=== PATIENT | male | born 1935 | race Caucasian/White ===

== ENCOUNTER 2017-12-18 09:05 | Day surgery (SDC) | payer MEDICARE, OTHER ==
[~2017-12-18] VITALS: Ht 172.7 cm; Wt 86.2 kg
[~2017-12-18 09:05] MED LIST: CENTRUM SILVER1 EAC3 PO; CO Q10200 MG PO; FAMOTIDINE40 MG PO; IMBRUVICA140 MG PO; PANTOPRAZOLE SO20 MG PO; SIMVASTATIN20 MG PO; VITAMIN D32000 UNI1 PO
[2017-12-18] MEDS ORDERED: NORVASC5 MG PO (09:39)
--- NOTE | 2017-12-18 11:55 | NUR ---
12/18/17 1155 Tricia Norris 1150 PATIENT ARRIVES TO PACU NON-RESPONSIVE TO PAIN OR VERBAL STIMULI. ORAL AIRWAY IN PLACE, NURSE HOLDING AIRWAY. MASK AT 10 LITERS. 1153 ORAL AIR[address] STILL IN PLACE, NURSE NO LONGER NEEDED TO HOLD AIRWAY.
--- NOTE | 2017-12-18 12:18 | NUR ---
ICED WATER GIVEN. SPOUSE @ BS. CALL LIGHT W/IN REACH.
--- NOTE | 2017-12-18 14:15 | NUR ---
1340: DISCHARGE INSTRUCTIONS GIVEN TO PATIENT. PORTACATH FLUSHED WITH 10 ML NS AND HAD GOOD BLOOD RETURN. PORTACATH THEN FLUSHED WITH 500 UNITS OF HEPARIN AND THEN DEACCESSED. BANDAID PLACED OVER PORTACATH SITE. 1355: PATIENT DISCHARGED TO HOME WITH SON VIA WHEELCHAIR.
[2017-12-18] MEDS ORDERED: NORCO 5-325 TA1 EACH PO (14:36)
[2017-12-18] MEDS ORDERED: KEFLEX500 MG PO (14:40)
--- NOTE | 2017-12-18 15:13 | NUR ---
1350: PATIENT ASSISTED OOB WITH HELP OF STUDENT NURSE. GAIT STEADY. VOID WITHOUT DIFFICULTY. GAIT STEADY BACK TO ROOM. SANDWICH ORDERED. 1445: PATIENT TOLERATED SANDWICH. IV DC'D WNL. TIP INTACT. DRESSING APPLIED. DISCHARGE INSTRUCTIONS GIVEN TO PATIENT AND . PATIENT GETTING DRESSED. 1505: PATIENT DISCHARGED TO HOME VIA WHEELCHAIR WITH .
--- NOTE | 2018-01-22 14:15 | OR ---
[facility] [address], [place] [address] Signed DATE OF OPERATION: 12/18/2017 SURGEON: Maurisio Worthington MD PREOPERATIVE DIAGNOSIS: Inferior turbinate hypertrophy. POSTOPERATIVE DIAGNOSIS: Inferior turbinate hypertrophy. PROCEDURE: Cautery, bilateral submucosal inferior turbinates. ANESTHESIA: General LMA, PASCUAL Boyer. PREOPERATIVE HISTORY: Mr. 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 This has been unresponsive to appropriate medications. Preop sinus CT was negative except for inferior turbinate hypertrophy. Sinuses were clear. He was taken to the operating room for the above-mentioned procedure. OPERATIVE PROCEDURE AND FINDINGS: After informed consent, the patient was taken to the operating room and placed in the supine position where general LMA anesthesia was induced. The patient and procedure were verified. The patient received preop intravenous Ancef and intranasal oxymetazoline. Headlight speculum exam of the nasal cavity showed good decongestion of the inferior turbinates. Right side was approached first with a long handle needle point cautery. Multiple passes submucosal cautery on the inferior turbinate on the medial and inferior surface starting anteriorly all the way back posteriorly. Excellent decongestion and shrinkage of the turbinate was obtained. Same procedure on the right inferior turbinate. Minimal bleeding stopped afterwards. Packing was placed. Equal amount of Merocel trimmed, coated with Neosporin and tied anteriorly over a pad. The pharynx was suctioned clear of blood secretions. Hemostasis was verified. The patient was awakened, extubated and transported to the recovery room in good condition. COMPLICATIONS: None. BLOOD LOSS: Electronically Signed By: MAURISIO WORTHINGTON MD 01/22/18 1415 PATIENT NAME: MOSES MCCLELLAND OPERATIVE REPORT DATE OF : 39 REPORT #: [id number] PHYSICIAN: MAURISIO WORTHINGTON MD PCP: JENNY SCOTT MD REPORT IS CONFIDENTIAL AND NOT TO BE RELEASED WITHOUT AUTHORIZATION [facility] [address] [place] [id number] Signed Minimal. SPECIMEN: None. DRAINAGE: None. PACKING: One piece of Merocel each nostril. Maurisio Worthington MD GC/MODL /[id number] Electronically Signed By: MAURISIO WORTHINGTON MD 01/22/18 1415 PATIENT NAME: MOSES MCCLELLAND OPERATIVE REPORT DATE OF : 39 REPORT #: [id number] PHYSICIAN: MAURISIO WORTHINGTON MD PCP: JENNY SCOTT MD REPORT IS CONFIDENTIAL AND NOT TO BE RELEASED WITHOUT AUTHORIZATION
== END 2017-12-18 15:05 | disposition home or self-care (01) ==
LOC: OPS 09:05 → DS 09:05 → OPS 10:15
PROVIDERS: Otolaryngology
PROC: 095L7ZZ Destruction of Nasal Turbinate, Via Natural or Artificial Opening (ICD-10-PCS; principal; 2017-12-18 10:15)
DX: J34.3 Hypertrophy of nasal turbinates (principal); J32.4 Chronic pansinusitis; G47.33 Obstructive sleep apnea (adult) (pediatric); H91.90 Unspecified hearing loss, unspecified ear; Z90.49 Acquired absence of other specified parts of digestive tract; Z98.890 Other specified postprocedural states; Z79.899 Other long term (current) drug therapy
CPT/HCPCS: 00160; 36415; 85025; J0690; J2250; J2405; J2704; J3010; J7120

== ENCOUNTER 2018-12-28 17:29 | Inpatient (IN) | payer MEDICARE, OTHER ==
[~2018-12-28] VITALS: Ht 175.3 cm; Wt 87.2 kg
[~2018-12-28 17:29] MED LIST changes: +CO Q-10300 MG PO; -CO Q10200 MG PO; +KEFLEX500 MG PO; +NORCO 5-325 TA1 EACH PO; +NORVASC5 MG PO
--- NOTE | 2018-12-28 23:15 | NUR ---
pt arrived to floor via stretcher. pt able to easily scoot across stretcher and onto bed with minimal assistance. pt denies pain, nausea, or sob. ice water provided. pt oriented to call light and room. pt education provided regarding not getting oob without assistance. pt states understanding. denies further needs at this time. calllight in reach.
--- NOTE | 2018-12-29 00:10 | NUR ---
PATIENT ASSESSMENT COMPLETE. PATIENT IS AAOX4. REPORTS PAIN IN RECTUM WHICH IS 8/10 AT REST, INCREASED BY COUGHING OR MOVEMENT. LUNGS ARE CLEAR. ABD IS ROUND, SOFT, NONTENDER. VOGT IN PLACE, URINE OUTPUT QS. SKIN GROSSLY INTACT. IV FLUIDS PER ORDER. SPOKE TO IN [facility] TO PAIN MEDICATION. NEW ORDERS RECEIVED AND VERIFIED VIA REPEAT BACK METHOD.
--- NOTE | 2018-12-29 02:30 | NUR ---
PATIENT'S ORAL TEMP ELEVATED. PRN TYLENOL PROVIDED. PATIENT DENIES FEELING FEVERISH. APPEARS COMFORTABLE. STATES "THE PAIN IS GONE UNLESS I COUGH, ITS GOOD NOW". FRESH ICE WATER PROVIDED. PATIENT DENIES FURTHER NEEDS.
--- NOTE | 2018-12-29 04:30 | NUR ---
PATIENT APPEARS TO BE SLEEPING SOUNDLY. RR 18.
--- NOTE | 2018-12-29 05:00 | NUR ---
PATIENT WOKE EASILY. REPORTS GOOD PAIN CONTROL. ONLY PAINFUL WHEN COUGHING. PATIENT DENIES ANY NEEDS.
--- NOTE | 2018-12-29 06:28 | NUR ---
PATIENT ARRIVED TO THE FLOOR AROUND 2300 LAST NIGHT. PATIENT REPORTS 8/10 RECTAL PAIN, WHICH WAS RELIEVED WITH PRN OXY X1. PATIENT IS AAOX3. HAS NOT BEEN OUT OF BED. VOGT FOR URINARY RETENSION, OUTPUT QS. PATIENT HAD SLIGHT TEMP, RESOLVED WITH TYLENOL. IV FLUIDS PER ORDER. REGULAR DIET. NO NAUSEA.
--- NOTE | 2018-12-29 08:00 | NUR ---
RECEIVED REPORT AT 0700, FOUND PT IN BED. HAD NO NEEDS OR CONCERNS AT THAT TIME. WITHIN A FEW MINUTES PT CALLED RN STATION AND STATED THAT HE WAS NAUSEATED. PT HAD EMESIS OF 250ML. ZOFRAN 4MG IV WAS GIVEN. NAUSEA AT THIS TIME HAS SUBSIDED.
--- NOTE | 2018-12-29 08:00 | NUR ---
PATIENT SITTING UP IN BED. RN IN ROOM. PATIENT'S BREAKFAST ORDERED
--- NOTE | 2018-12-29 09:20 | NUR ---
PATIENT RESTING IN BED. RN IN ROOM. VITAL SIGNS AND I&O DONE. CALL LIGHT WITHIN REACH. NO OTHER NEEDS AT THIS TIME
--- NOTE | 2018-12-29 10:00 | NUR ---
V/S ARE WDL. PT DENIES PAIN. STOOL SAMPLE HAS BEEN COLLECTED AND SENT. URINE OUTPUT IS ADEQUATE. ALL LOBES ARE CLEAR, ABD SOUNDS ARE PRESENT. NO NEW CONCERNS NOTED AT THIS TIME. WILL CONTINUE TO MONITOR.
--- NOTE | 2018-12-29 13:33 | NUR ---
PATIENT IN BED. FRIEND IN ROOM. VITAL SIGNS AND I&O DONE. CALL LIGHT WITHIN REACH. ICE WATER GIVEN. NO OTHER NEEDS AT THIS TIME
--- NOTE | 2018-12-29 13:47 | NUR ---
PT AT THIS TIME IS NOT FEELING TOO WELL OVERALL. PT STEPHEN ABD PAIN. MD MELGOZA AWARE. V/S ARE WDL.
--- NOTE | 2018-12-29 16:00 | NUR ---
ABD PAIN HAS SUBSIDED SINCE PROTONIX WAS GIVEN. PT AT THIS TIME IS RESTING IN BED. WAS AT BEDSIDE EARLIER.
--- NOTE | 2018-12-29 16:51 | EKG ---
[facility] [address] [facility] [place], [place] [address] Signed Normal sinus rhythm Incomplete right bundle branch block Borderline ECG No previous ECGs available Confirmed by SURENDRA MELGOZA DO ([id number]) on 12/29/2018 4:50:51 PM Electronically Signed By: SURENDRA MELGOZA DO 12/29/18 165 PATIENT NAME: MOSES MCCLELLAND [facility] Electrocardiogram DATE OF : 39 PHYSICIAN: SURENDRA MELGOZA DO REPORT #: [id number] REPORT IS CONFIDENTIAL AND NOT TO BE RELEASED WITHOUT AUTHORIZATION
--- NOTE | 2018-12-29 17:09 | NUR ---
PATIENT SITTING UP IN BED WATCHING TV. IN ROOM. VITAL SIGNS AND I&O DONE. CALL LIGHT WITHIN REACH. ICE WATER AND SODA GIVEN. NO OTHER NEEDS AT THIS TIME
--- NOTE | 2018-12-29 17:40 | NUR ---
AT START OF SHIFT PT HAD 1 EPISODE OF EMESIS 250ML, ZOFRAN 4MG IV WAS GIVEN WHICH HELPED. AT AROUND NOON PT STARTED TO COMPLAIN OF ABD PAIN AND GENERAL MALAISE. V/S WERE TAKEN AND THEY WERE WDL. MD MELGOZA ORDERED PROTONIX IV AND HIS ABD PAIN SUBSIDED AFTER THAT. STOOL SAMPLE WAS SENT AT 0920. LOBES ARE CLEAR, ABD SOUNDS ARE PRESENT. PT IS AAOX4. PT IS SL AT THIS TIME. NO NEW CONCERNS NOTED AT THIS TIME. WILL CONTINUE TO MONITOR.
--- NOTE | 2018-12-29 19:22 | NUR ---
CHARGE NURSE REPORT RECEIVED FROM WENDY. PT IN BED, WANTING TO GET HIS BEDTIME MEDS, SO HE CAN SLEEP. ASSURED HIM THAT HIS PRIMARY NURSE WILL BE IN AND ADMINISTER THOSE MEDS.
--- NOTE | 2018-12-29 19:58 | NUR ---
CONTINUES ON NEUTROPENIC PRECAUTIONS, COOP WITH ASSESSMENT. F/C PATENT, ON ROOM AIR
--- NOTE | 2018-12-29 19:59 | NUR ---
MEDICATED WITH 5MG PO OXYCONTIN C/O RECTAL PAIN
--- NOTE | 2018-12-29 23:37 | NUR ---
MEDICATED WITH ZOFRAN 4MG IV, 150CC EMESIS.
--- NOTE | 2018-12-30 00:55 | NUR ---
NO FURTHER C/O UPSET STOMACH OR EMESIS, ZOFRAN EFFECTIVE, RESTING,CALL LIHGT AT BEDSIDE
--- NOTE | 2018-12-30 05:04 | NUR ---
CONTINUES ON NUTROPENIC PRECAUTIONS. HAS SLEPT THIS SHIFT. WAS MEDICATED WITH OXYCODONE AT BEGINING OF SHIFT WITH GOOD PAIN RELIEF. ON ROOM AIR. NO C/O ADVERSE REACTION TO ABX. CONCERNED ABOUT NOT TAKING HIS REGULAR MEDS, REASSURED WITH LITTLE TO [facility] [employer]. F/C INTACT. CALL LIGHT AND FLUIDS AT BEDSIDE
--- NOTE | 2018-12-30 06:27 | NUR ---
PATIENT DID A.M. CARE, ORAL CARE, WASH FACE AND HANDS AND SHAVED.
--- NOTE | 2018-12-30 08:00 | NUR ---
RECIEVED BEDSIDE REPORT FROM HEIDI DIANA. PT AWAKE AND ALERT IN BED. NO NEEDS AT THIS TIME. VOGT DRAINING YELLOW URINE. EYE DROPS AT BEDSIDE.
--- NOTE | 2018-12-30 10:18 | NUR ---
Medications reconciled with pharmacy records
--- NOTE | 2018-12-30 10:30 | NUR ---
SPOKE WITH PATIENT AND LIFE PARTNER JERMAINE IN ROOM. PATIENT IS INDEPENDENT, WORKS, DRIVES. PATIENT PLANS TO RETURN HOME AT DISCHARGE. JERMAINE STATES SHE WILL STAY WITH HIM FOR AWHILE IF HE NEEDS ANYTHING. PATIENT HAS PCP IN [place] DR TAI WILSON AND HE ALSO SEES DR SCOTT FROM [facility]. THEY HAVE NO QUESTIONS OR CONCERNS REGARDING HOME DISCHARGE AT THIS TIME. WILL CONTINUE TO FOLLOW.
--- NOTE | 2018-12-30 11:34 | NUR ---
ASSISTED PT TO BATHROOM. PT STATES HE FEELS MUCH BETTER AFTER A FRUIT PLATE. PT ABLE TO HAVE BM. VOIDING AFTER VOGT REMOVAL. PT STATED THAT HIS CANCER MD CALLED WHILE DR MELGOZA WAS IN ROOM, THEY WERE ABLE TO TALK.
--- NOTE | 2018-12-30 14:14 | NUR ---
PT SITTING UP IN JUST RECIEVING HIS LUNCH. PT SEEMED EXCITED, BUT ALITTLE CAUTIOUS. PT HAS BEEN UNABLE TO EAT FOR SEVERAL DAYS. HAD PLEASANT VISIT, HIS Gerry DEAN AT . PT SHOOK MY HAND AND THANKED ME FOR COMING FOR THIS VISIT. EXTENDED A BLESSING, WILL FOLLOW NEEDED
--- NOTE | 2018-12-30 16:57 | NUR ---
PT RESTING COMFORTABLELY. REQUESTING ICE WATER. PT IS VOIDING WELL.
--- NOTE | 2018-12-30 17:04 | NUR ---
PATIENT SITTING UP IN BED. IN ROOM. VITAL SIGNS AND I&O DONE. CALL LIGHT WITHIN REACH. NO OTHER NEEDS AT THIS TIME
--- NOTE | 2018-12-30 19:00 | NUR ---
CHARGE ROUNIDNG DONE. PATIENT RESTING IN BED. DENIES ANY NEEDS AT THIS TIME. CALL LIGHT IN REACH.
--- NOTE | 2018-12-30 19:46 | NUR ---
ASSESSMENT DONE. PT RATES PAIN / BUT DOES REQUEST A PAIN PILL FOR THE NIGHT TO PREVENT PAIN FROM GETTING WORSE. WANTING TO SLEEP FOR THE NIGHT. PLAN OF CARE DISCUSSED WITH PT FOR THE NIGHT, PT AGREEABLE. NO FURTHER REQUESTS AT THIS TIME.
--- NOTE | 2018-12-30 21:45 | NUR ---
PT RESTING, RESP EVEN AND UNLABORED, EYES CLOSED.
--- NOTE | 2018-12-31 00:15 | NUR ---
IN TO CHECK ON PT, PT AWAKE. REQUESTS TUMS AND TYLENOL PM. EXPLAINED THE TUMS ARE DC'D. OFFERED PT ZOFRAN FOR NAUSEA, STATES "STOMACH FEELS OKAY RIGHT NOW, I WANT THEM JUST IN CASE I NEED THEM LATER". OFFERED PAIN MEDS TO HELP SLEEP, STATES HE IS NOT HAVING ANY PAIN RIGHT NOW. DR VARGAS CALLED, ORDER GIVEN FOR BENADRYL AND TUMS, GIVEN TO PT.
--- NOTE | 2018-12-31 02:22 | NUR ---
IN TO CHECK ON PT, LYING THERE WITH EYES OPEN. RESP EVEN/UNLABORED.
--- NOTE | 2018-12-31 03:57 | NUR ---
PT UP TO VOID AND BACK TO BED. WARM BLANKET PROVIDED. DENIES PAIN OR NAUSEA. VSS. STATES HE WAS ABLE TO SLEEP FOR A WHILE "IT FELT GOOD"/
--- NOTE | 2018-12-31 06:30 | NUR ---
PT AWAKENS FOR FLAGYL, DENIES PAIN/NAUSEA. UP TO ORDER BREAKFAST.
--- NOTE | 2018-12-31 07:33 | NUR ---
Pt sleeping in bed at this time, resp even and non labored. IV infusing. Pt appears comfortable, flacc 0/10. Personal supplies and call light within reach.
[2018-12-31] MEDS ORDERED: AUGMENTIN 875-1 EACH PO (11:09)
[2018-12-31] MEDS ORDERED: ANUSOL-HC30 GM PR (11:10)
[2018-12-31] MEDS ORDERED: RECTIV30 GM PR (11:14)
[2018-12-31] MEDS ORDERED: SENNA-DOCUSATE1 EACH PO (11:22)
[2018-12-31] MEDS ORDERED: TURMERIC500 M2 PO (12:08)
== END 2018-12-31 12:25 | disposition home or self-care (01) | DRG 394 ==
LOC: ED 17:29 → MS 17:31
PROVIDERS: ADMIT Student in an Organized Health Care Education/Training Program
DX: K60.2 Anal fissure, unspecified (principal); N41.0 Acute prostatitis; C91.10 Chronic lymphocytic leukemia of B-cell type not having achieved remission; I10 Essential (primary) hypertension; E78.5 Hyperlipidemia, unspecified; K21.9 Gastro-esophageal reflux disease without esophagitis; R33.9 Retention of urine, unspecified; Z79.899 Other long term (current) drug therapy; Z92.21 Personal history of antineoplastic chemotherapy
CPT/HCPCS: 36415; 51702; 51798; 71045; 74177; 80048; 80053; 80076; 80500; 81001; 83605; 83735; 85025; 85610; 85730; 86631; 87040; 87045; 87046; 87077; 87491; 87502; 87591; 93005; 93010; 97161; 99285-25; C9113; J0692; J0696; J1650; J2405; J7030; J7060; Q9967

== ENCOUNTER 2022-10-28 06:01 | Emergency (ER) | payer MEDICARE, OTHER ==
[~2022-10-28] VITALS: Ht 175.3 cm; Wt 88.9 kg
[~2022-10-28 06:01] MED LIST changes: +ANUSOL-HC30 GM PR; +AUGMENTIN 875-1 EACH PO; +RECTIV30 GM PR; +SENNA-DOCUSATE1 EACH PO; +TURMERIC500 M2 PO
[2022-10-28] MEDS ORDERED: VENTOLIN HFA18 GM INH (07:07)
[2022-10-28] MEDS ORDERED: PREDNISONE20 MG PO (07:07)
[2022-10-28] MEDS ORDERED: TAMIFLU75 MG PO (07:07)
== END 2022-10-28 07:23 | disposition home or self-care (01) ==
LOC: ED 06:01
DX: J10.1 Influenza due to other identified influenza virus with other respiratory manifestations (principal); Z20.822 Contact with and (suspected) exposure to COVID-19; Z79.899 Other long term (current) drug therapy
CPT/HCPCS: 71045; 87502; 99284-25; C9803; J7512; U0003

== ENCOUNTER 2025-01-12 09:30 | Emergency (ER) | payer MEDICARE, OTHER ==
[~2025-01-12] VITALS: Ht 175.3 cm; Wt 86.6 kg
[~2025-01-12 09:30] MED LIST changes: +PREDNISONE20 MG PO; +TAMIFLU75 MG PO; +VENTOLIN HFA18 GM INH
[2025-01-12] MEDS ORDERED: TRAZODONE HCL50 MG PO (09:40)
[2025-01-12] MEDS ORDERED: ASPIRIN81 MG PO (09:41)
[2025-01-12] MEDS ORDERED: MELATONIN5 M2 PO (09:41)
[2025-01-12] MEDS ORDERED: RESTASIS MULTI5.5 ML OP (09:42)
[2025-01-12 09:45] LABS: BASOPHILS 0.3 % (0-2); EOSINOPHILS 0.3 % (0-6); HEMATOCRIT 42.9 % (35.0-50.0); HEMOGLOBIN 15.1 g/dL (12.0-18.0); LYMPHOCYTES 19.9 % (24-44); MCH 33.3 (27-36); MCHC 35.3 g/dl (30-36); MCV 94.3 fl (81-99); MONOCYTES 8.5 % (0-12); PLATELET COUNT 124 K/uL (140-440); RBC 4.55 M/ul (4.3-5.7); RDW 13.4 (10.5-15.0)
[2025-01-12 09:56] LABS: ALBUMIN 4.2 g/dL (3.4-5.0); ALBUMIN/GLOBULIN RATIO 1.75 (1.1-2.4); ANION GAP 13.4 (7-21); BILIRUBIN, TOTAL 1.1 mg/dL (0.2-1.0); BUN/CREATININE RATIO 17.88 (6.0-28.6); CREATININE, SERUM 1.23 mg/dL (0.70-1.30); POTASSIUM 4.4 mmol/L (3.5-5.1); PROTEIN, TOTAL 6.6 g/dL (6.4-8.2)
[2025-01-12 11:50] LABS: BILIRUBIN, URINE NEGATIVE (negative); BLOOD/HGB, URINE NEGATIVE (Negative); KETONE, URINE NEGATIVE (Negative); LEUK ESTERASE, URINE NEGATIVE (negative); NITRITE, URINE NEGATIVE (negative)
[2025-01-12] MEDS ORDERED: SODIUM CHLORIDE 0.9% 1,000 ML IV PRN (12:00)
[2025-01-12 13:21] VITALS: BP 140/65
--- NOTE | 2025-01-14 19:39 | EKG ---
[facility] [address] [place] [address] Signed Marked sinus bradycardia with 1st degree AV block Abnormal ECG When compared with ECG of 28-DEC-2018 17:42, TX interval has increased Vent. rate has decreased BY 41 BPM Incomplete right bundle branch block is no longer present Confirmed by Dianna Alford MD ([id number]) on 01/14/2025 7:39:10 PM Electronically Signed By: DIANNA ALFORD MD 01/14/25 1939 PATIENT NAME: MOSES MCCLELLAND [facility] Electrocardiogram DATE OF : 39 PHYSICIAN: DIANNA ALFORD MD REPORT #: [id number] REPORT IS CONFIDENTIAL AND NOT TO BE RELEASED WITHOUT AUTHORIZATION
== END 2025-01-12 13:56 | disposition home or self-care (01) ==
LOC: ED 09:30
PROVIDERS: Emergency Medicine
DX: R42 Dizziness and giddiness (principal); I10 Essential (primary) hypertension; E78.00 Pure hypercholesterolemia, unspecified; Z86.73 Personal history of transient ischemic attack (TIA), and cerebral infarction without residual deficits; Z79.82 Long term (current) use of aspirin; Z79.899 Other long term (current) drug therapy
CPT/HCPCS: 36415; 70551; 80053; 81003; 85025; 93005; 93010; 99285-25; J7030